=== PATIENT | female | born 1965 | race Caucasian/White ===

== ENCOUNTER 2017-08-06 11:06 | Emergency (ER) | payer OTHER ==
[2017-08-06 11:14] VITALS: BP 127/79; PULSE 77; TEMP 97.7; BMI 26.2
--- NOTE | 2017-08-06 12:21 | PDOC ---
History of Present Illness - General Chief Complaint: Pain Stated Complaint: RIGHT SIDE PAIN Time Seen by Provider: 08/06/17 12:06 History Source: Patient Exam Limitations: No Limitations - History of Present Illness Initial Comments: CHIEF COMPLAINT: 51 y/o afebrile female here for 2nd opinion regarding her right buttock infection. HISTORY OF PRESENT ILLNESS: The patient had plastic surgery 6 months ago in the [place] where fat was removed from her abdomen and injected into her buttocks. She states 1 week ago she started having pain in her right buttock. She was seen at a hospital in the [place] 2 [place] ago on 08/[address] scan of her pelvis that suggested possible small, early cellulitis. She was prescribed bactrim and ibuprofen, was given a follow up appointment for 08/25 with a surgeon and discharged. She is here because she wants another Cat scan and 2nd opinion because she thinks she has a "bacteria" that need treatment. She denies f/c, n/v/d, streaking/swelling to affected area. Vital signs on arrival are within normal limits. REVIEW OF SYSTEMS: GENERAL/CONSTITUTIONAL: No fever/chills. No weakness. No weight change. MUSCULOSKELETAL: +right buttock pain and swelling. No neck or back pain. SKIN: No rash or easy bruising. NEUROLOGIC: No headache, vertigo, loss of consciousness, or loss of sensation. PHYSICAL EXAM: VITAL_SIGNS: within normal limits GENERAL_APPEARANCE: alert, cooperative, no obvious discomfort. Patient is ambulatory with normal gait. MENTAL_STATUS: speech clear, oriented X 3, responds appropriately to questions. NEURO: motor intact and sensory intact in injured extremity. EXTREMITIES: Normal ROM of b/l LEs. SKIN: b/l buttocks appear equal in size and color. No erythema, warmth or edema to right buttock. No streaking to affected area. Small indentation of lower right buttock that is slightly tender to deep palpation. Past History - Past Medical History Allergies/Adverse Reactions: Allergies Allergy/AdvReac Type Severity Reaction Status Date / Time morphine Allergy Verified 08/06/17 11:16 COPD: No - Suicide/Smoking/Psychosocial Hx Smoking History: Never smoked *Physical Exam - Vital Signs Last Vital Signs Temp Pulse Resp BP Pulse Ox 97.7 F 77 18 127/79 99 08/06/17 11:08 08/06/17 11:08 08/06/17 11:08 08/06/17 11:08 08/06/17 11:08 Medical Decision Making - Medical Decision Making A/P: 51 y/o female with confirmed early cellulitis from CT scan from another hospital 2 days ago. Lab work from 2 days ago normal. Patient was started on Bactrim and given f/u appointment with general surgeon scheduled for 08/25. I reassured the patient she is taking the correct medication for the problem and that she should keep f/u appointment scheduled for 08/25. Informed her that a repeat CT scan is not only not necessary but also poor medicine because of the radiation. Instructed her to return to the ER with any worsening or concerning symptoms. The patient verbalizes understanding of all instructions, has no further questions and is awaiting discharge. *DC/Admit/Observation/Transfer Diagnosis at time of Disposition: Worried well - Referrals Referrals: ON STAFF,NOT [Primary Care Provider] - - Patient Instructions Printed Discharge Instructions: DI for Cellulitis -- Adult Additional Instructions: Discharge Instructions: -Please take the medications the other hospital prescribed for you -You have a follow up appointment with a general surgeon scheduled for 08/25; please keep that appointment -Return to the ER with any worsening or concerning symptoms Instrucciones de descarga: -Por favor, tome los medicamentos que el otro hospital le recet -Tiene kemal conchita de seguimiento con un cirujano general programada para el 08/25; por favor, mantn lico conchita -Volver a la rene de urgencias con cualquier empeoramiento o sntomas Print Language: MALDIVIAN - Post Discharge Activity
== END 2017-08-06 12:38 | disposition home or self-care (01) ==
LOC: JERFT 11:06
DX: L03.317 Cellulitis of buttock (principal)
CPT/HCPCS: 99281-25